=== PATIENT | male | born 1980 | race Caucasian/White ===

== ENCOUNTER 2018-11-18 08:30 | Observation (INO) | payer SELFPAY ==
[2018-11-18] MEDS ORDERED: Morphine 4 MG/ML VIAL ONE ×3 (09:04→12:03)
[2018-11-18] MEDS ORDERED: Pantoprazole 40 MG VIAL ONE (09:05)
[2018-11-18] MEDS ORDERED: Ondansetron PF 4 MG/2 ML Vial ONE ×2 (09:05→09:50)
[2018-11-18 09:11] LABS: #Eosinphils 0.1 thou/uL (0.0-0.7); #Lymphocytes 0.9 thou/uL (1.20-3.40); #Monocytes 0.6 thou/uL (0.11-0.59); #Neutrophils 15.3 thou/uL (1.40-6.50); %Basophils 0.2 % (0.0-1.0); %Eosinophils 0.3 % (0.0-10.0); %Lymphocytes 5.5 % (21.0-51.0); %Monocytes 3.3 % (0.0-10.0); %Neutrophils 90.8 % (42.0-75.0); Hemoglobin 15.7 g/dL (14.0-18.0); Mean Corpuscular HGB CONC 33.6 g/dL (32.0-36.0); Mean Corpuscular Hemoglobin 29.6 pg (27.0-31.0); Mean Platelet Volume 7.8 fL (7.4-10.4); Platelet Count 291 thou/uL (130-400); RBC Distribution Width 12.2 % (11.5-14.5); Red Blood Cell (RBC) Count 5.31 mill/uL (4.70-6.10); White Blood Cell (WBC) Count 16.9 thou/uL (4.8-10.8)
[2018-11-18 09:36] LABS: ALT (SGPT) 49 U/L (8-55); AST (SGOT) 36 U/L (5-34); Albumin 4.4 g/dL (3.5-5.0); Alkaline Phosphatase 87 U/L (40-150); Anion Gap 16 mmol/L (10-20); BUN (Urea Nitrogen) 16 mg/dL (8.9-20.6); Bilirubin, Total 0.7 mg/dL (0.2-1.2); Calc. Creatinine Clearance 0 mL/min (70-130); Calcium 9.7 mg/dL (7.8-10.44); Carbon Dioxide 25 mmol/L (22-29); Chloride 95 mmol/L (98-107); Estimated GFR-MDRD 90; Globulin 2.9 g/dL (2.4-3.5); Glucose 238 mg/dL (70-105); Lipase 6 U/L (8-78); Potassium 4.6 mmol/L (3.5-5.1); Protein, Total 7.3 g/dL (6.0-8.3); Sodium 131 mmol/L (136-145)
[2018-11-18] MEDS ORDERED: Dexamethasone 20 MG/5 ML VIAL ONE (09:50)
[2018-11-18] MEDS ORDERED: PROPOFOL 200 MG/20 ML VIAL ONE (09:50)
[2018-11-18] MEDS ORDERED: Rocuronium Bromide 10 MG/ML (10ML VIAL) ONE (09:50)
--- NOTE | 2018-11-18 09:57 | CT ---
CT ABDOMEN AND PELVIS WITH IV CONTRAST 11/18/2018 CLINICAL INFORMATION: Sudden onset of pain in the epigastric region with pain radiating to back. Nausea vomiting and diarrh ea. COMPARISON: None. Technique: Multiple contiguous axial CT images are obtained through the abdomen and pelvis with IV contrast. Cor onal reformatted images are provided. FINDINGS: Lower Chest: Minimal dependent bibasilar atelectasis is present Vessels: The abdominal aorta is normal in caliber without evidence of an aortic dissection. Abdomen: Portal vein:Patent Gallbladder: Within normal limits for CT imaging. Liver: within normal limits. Spleen: within normal limits. Pancreas: within normal limits. Adrenals: within normal limits. Kidneys: A subcentimeter too small to characterize hypodense lesion is seen in the midportion left ki dney. The kidneys otherwise have a normal CT appearance bilaterally. There is no hydronephrosis. Bowel: Normal caliber. Appendix: The appendix is dilated measuring up to 12 mm in diameter. There is an appendicolith seen a t the origin of the appendix measuring 7 mm in diameter. A smaller appendicolith is seen in the distal appendix. There is suggestion of minimal adjacent periappendiceal inflammatory changes. Findin gs are likely attributable to early acute appendicitis. No free intraperitoneal gas or adjacent fluid collection is identified. Peritoneum: No ascites or free air; no fluid collection. Mesentery and Retroperitoneum: No enlarged mesenteric or retroperitoneal lymph nodes. Abdominal Wall: within normal limits. Pelvis: Reproductive Organs: No pelvic masses. Pelvis within normal limits. Bladder: within normal limits. Bones: Mild degenerative changes are seen in the lower thoracic spine. IMPRESSION: Evidence of early acute appendicitis with the appendix measuring 12 mm in diameter. Above findings were discussed with ANN Harrison in the emergency department on 11/18/2018 at 09 52 hours.
[2018-11-18] MEDS ORDERED: Piperacillin/Tazobactam 4.5 GM VIAL ONE (09:59)
--- NOTE | 2018-11-18 10:08 | RAD ---
RADIOGRAPH CHEST 1 VIEW: DATE: 11/18/2018 HISTORY: 37-year-old male for preoperative clearance FINDINGS: There is no airspace density, pulmonary edema, or pneumothorax. The lateral costophrenic angles are n ot effaced. IMPRESSION: No acute pulmonary findings.
[2018-11-18 10:15] LABS: PTT 28.6 SEC (22.9-36.1); Prothrombin Time 12.9 SEC (12.0-14.7)
[2018-11-18 10:44] LABS: Bilirubin Negative (Negative); Blood, Urine Negative (Negative); Glucose, Urine (Dipstick) 500 mg/dL (Negative); Leukocyte Negative (Negative); Nitrite Negative (Negative); Protein, Urine (Dipstick) 30 mg/dL (Neg-Trace); Urobilinogen 0.2 mg/dL (0.2-1.0)
[2018-11-18 10:45] LABS: Clarity Clear (Clear)
[2018-11-18] MEDS ORDERED: ISOVUE-370 76%-LOCM 1 ML ONE (10:48)
[2018-11-18 10:54] LABS: Bacteria/HPF None Seen HPF (None Seen); Hyaline Casts/LPF NONE SEEN LPF (0-3 Hyaline); RBC/HPF 0-3 HPF (0-3); Squamous Epithelial 0-3 HPF (0-3); WBC/HPF None Seen HPF (0-3)
[2018-11-18] MEDS ORDERED: Ondansetron PF 4 MG/2 ML Vial IVP PRN (13:06)
[2018-11-18] MEDS ORDERED: Ondansetron ODT 4 MG TAB PO PRN (13:06)
[2018-11-18] MEDS ORDERED: Morphine 4 MG/ML VIAL SLOW IVP PRN (13:06)
[2018-11-18] MEDS ORDERED: D5 1/2 NS w/20 mEq KCL 1,000 ML IV SCH (13:15)
[2018-11-18] MEDS ORDERED: HumaLOG 300 UNITS/3 ML VIAL SC PRN (13:23)
[2018-11-18] MEDS ORDERED: Dextrose 5% in Water 1,000 ML IV PRN (13:23)
[2018-11-18] MEDS ORDERED: Dextrose 50% Abboject 50 ML SYRINGE SLOW IVP PRN (13:23)
[2018-11-18] MEDS ORDERED: hydrALAZINE 20 MG/ML VIAL SLOW IVP PRN (13:24)
[2018-11-18] MEDS ORDERED: Acetaminophen 1,000 MG in Premix Bag 1 BAG IVPB SCH (13:30)
[2018-11-18] MEDS ORDERED: Sodium Chloride 0.9% 1,000 ML IV SCH (13:30)
[2018-11-18] MEDS ORDERED: Ketorolac Tromethamine 30 MG/ML VIAL IVP SCH (13:30)
--- NOTE | 2018-11-18 13:46 | HP ---
HISTORY OF PRESENT ILLNESS: Jean Carlos Odell is a 37-year-old male patient, cellphone tower constructor, type 1 diabetic since he was 5 years age, presents with lower abdominal pain since 3 o'clock this morning, presents to the emergency room, noted to have an elevated white blood cell count to 16,000, normal hemoglobin, undergoing CAT scan, confirms suspicion of appendicitis. This was confirmed. I have talked to Kitty, nurse practitioner, in the emergency room. Plan is for laparoscopic appendectomy as outpatient. Specific recommendations were that the patient not be admitted to the floor and that he would be outpatient. To my surprise, he was admitted to the floor. He has had 1 L of IV fluids and then saline locked. He received intravenous antibiotics in the emergency room. ALLERGIES: NONE. SOCIAL HISTORY: Tobacco, none. Alcohol, rarely. MEDICATIONS: Insulin regular and NPH twice a day for each. PAST SURGICAL HISTORY: Noncontributory. REVIEW OF SYSTEMS: Ten-point noncontributory. PHYSICAL EXAMINATION: VITAL SIGNS: Weight is 104 kg. Blood pressure 191/91, pulse 69, respiratory rate 14, and temperature 97.8 degrees. HEAD, EARS, EYES, NOSE, AND THROAT: Unremarkable. LUNGS: Clear to auscultation. CARDIAC: Regular rate and rhythm without murmur or gallop. ABDOMEN: Soft. Tenderness in his right lower quadrant, with guarding, rebound. EXTREMITIES: Unremarkable. ASSESSMENT AND PLAN: 1. Acute appendicitis. Recommend laparoscopic video appendectomy as outpatient. Risks of infection, bleeding, visceral injury discussed. Questions answered. 2. Type 1 diabetes. Accu-Cheks and aggressive sliding scale. Job ID: [id number]
[2018-11-18 14:12] VITALS: BMI 32.1
[2018-11-18] MEDS ORDERED: Ketorolac Tromethamine 60 MG/2 ML VIAL IVP PRN (15:10)
[2018-11-18] MEDS ORDERED: Ketorolac Tromethamine 60 MG/2 ML VIAL IVP SCH ×2 (15:15)
[2018-11-18] MEDS: Piperacillin/Tazobactam 4.5 GM in Sodium Chloride 0.9% 100 ML IVPB SCH ×2 (15:20→23:49)
[2018-11-18] MEDS ORDERED: HumaLOG 300 UNITS/3 ML VIAL SC SCH (17:30)
[2018-11-18] MEDS ORDERED: Piperacillin/Tazobactam 4.5 GM in Sodium Chloride 0.9% 100 ML IVPB SCH (18:00)
[2018-11-18] MEDS ORDERED: Midazolam HCl 2 mg/2 ml Vial ONE ×2 (19:15→22:17)
[2018-11-18] MEDS ORDERED: Acetaminophen 1,000 MG in Premix Bag 1 BAG IVPB PRN (20:00)
[2018-11-18] MEDS ORDERED: Ketorolac Tromethamine 30 MG/ML VIAL IVP PRN (20:00)
[2018-11-18] MEDS ORDERED: Bupivacaine HCl 0.5%/Epinephrine 1:200,000/PF 30 ml Vial ONE (21:40)
[2018-11-18] MEDS ORDERED: Propofol 1,000 MG/100 ML VIAL IV ONE (22:02)
[2018-11-18] MEDS ORDERED: SUGAMMADEX SODIUM 500 MG/5 ML VIAL ONE (22:02)
[2018-11-18] MEDS ORDERED: Fentanyl 100 MCG/2 ML VIAL ONE (22:02)
[2018-11-18] MEDS ORDERED: Rocuronium Bromide 50 MG/5 ML VIAL ONE (22:02)
[2018-11-18] MEDS ORDERED: Lidocaine 2% Jelly 5 ML TUBE ONE (22:02)
[2018-11-18] MEDS ORDERED: traMADol HCl 50 MG TAB PO PRN ×2 (22:20)
[2018-11-18] MEDS ORDERED: Ibuprofen 600 MG TAB PO PRN (22:20)
[2018-11-18] MEDS ORDERED: Acetaminophen 500 MG TAB PO PRN (22:20)
[2018-11-18 23:40] VITALS: TEMP 99.1
[2018-11-19 00:33] VITALS: BP 128/73
--- NOTE | 2018-11-19 04:07 | OP ---
DATE OF PROCEDURE: 11/18/2018 PREOPERATIVE DIAGNOSES: Acute appendicitis. Diabetes, type 1. POSTOPERATIVE DIAGNOSES: Acute appendicitis. Diabetes, type 1. PROCEDURE PERFORMED: Laparoscopic video appendectomy. ANESTHESIA: General, local 0.5% Marcaine with epinephrine 30 mL. DESCRIPTION OF PROCEDURE: The patient was taken to the operating room, where under general anesthesia, Varela catheter was placed at the beginning of procedure, removed at the end. Abdomen was clipped of hair, prepared with ChloraPrep, and draped in routine fashion. Local anesthetic was infiltrated in the skin and subcutaneous tissue at each port site. Infraumbilical incision was made. Pneumoperitoneum to 15 mmHg was obtained with a Veress needle, replaced with a 5 port and laparoscope was inserted. Suprapubic incision was made, and a 12 port was placed. Right lateral subcostal incision was made, and a 5 port was placed. Mesoappendix was taken down with the LigaSure. Stump of the appendix was divided with Endo-CALOS blue load stapler and stapled cecal stump. Hemostasis was gained with clips. Good hemostasis was noted. Irrigant and pneumoperitoneum were evacuated. All instruments were removed, and all skin incisions were approximated with a subdermal 4-0 Monocryl and after suprapubic fascia was approximated with 0 Vicryl on UR needle, Dermabond was applied. The patient tolerated the procedure well. Job ID: [id number]
--- NOTE | 2018-11-19 05:07 | DIS ---
DATE OF ADMISSION: 11/18/2018 DATE OF DISCHARGE: 11/19/2018 DIAGNOSES: 1. Acute severe appendicitis. 2. Type 1 diabetes. MEDICATIONS: Insulin at home, NPH and regular, both twice a day. DISCHARGE MEDICATIONS: Ultram 50, #20, one refill 1 to 2 p.o. q.i.d. p.r.n. pain, refractory to ibuprofen [id number] 400 to 600 mg q.i.d. as needed and Tylenol 1000 mg p.o. q.i.d. as needed for pain. DIET AND ACTIVITY: As tolerated. Resume diabetic diet as tolerated. Follow up in my office in 2 to 3 weeks. HISTORY: A 37-year-old male presents with acute onset of pain. History consistent with appendicitis. Exam suggestive of and CAT scan confirms appendicitis. Patient received intravenous fluids, antibiotics and transferred to the floor because of unavailability of the operating room, and eventually underwent laparoscopic video appendectomy at 10:45 p.m. Postoperatively, he did well and was discharged home. Diet and activity as tolerated. No lifting restrictions. Follow up with Dr. Gomez in 2 to 3 weeks. Job ID: [id number]
--- NOTE | 2018-11-19 12:56 | EKG ---
Test Reason : Blood Pressure : / mmHG Vent. Rate : 069 BPM Atrial Rate : 069 BPM P-R Int : 152 ms QRS Dur : 096 ms QT Int : 438 ms P-R-T Axes : 046 041 065 degrees QTc Int : 469 ms Normal sinus rhythm Normal ECG Confirmed by JOCELYN PEÑA, NANCY ([id number]), editor in chief newspaper RICK TIPTON ([id number]) on 11/19/2018 12:56:14 PM Referred By: Confirmed By:NANCY BANKS MD
== END 2018-11-19 00:49 | disposition home or self-care (01) ==
LOC: ERS 08:30 → SURG A 10:00
PROVIDERS: ADMIT Specialist; ATTEND Specialist
PROC: 0DTJ4ZZ Resection of Appendix, Percutaneous Endoscopic Approach (ICD-10-PCS; principal; 2018-11-19)
DX: K35.33 Acute appendicitis with perforation, localized peritonitis, and gangrene, with abscess (principal); E10.9 Type 1 diabetes mellitus without complications
CPT/HCPCS: 36415; 36416; 71045; 74177; 80053; 81003; 81015; 82010; 83605; 83690; 85025; 85610; 85730; 87086; 88304; 93005; 96361; 96365; 96366; 96375; 96376; C9113; G0378; J0131; J0670; J1100; J1885; J2250; J2270; J2405; J2543; J2704; J3010; J3490; Q9966

== ENCOUNTER 2018-11-19 14:19 | Inpatient (IN) | payer SELFPAY ==
[~2018-11-19 14:19] MED LIST: ISOVUE-370 76%-LOCM 1 ML ONE
--- NOTE | 2018-11-19 14:45 | RAD ---
EXAM: CHEST ONE VIEW HISTORY: Chest pain COMPARISON: 11/18/2018. FINDINGS: Cardiac silhouette is magnified by projection but stable in size compared to prior exam. The cardiac silhouette does appear mildly enlarged, but this is likely attributable to an epicardial fat pad at the right lung base. Pulmonary vasculature is within normal limits. The lungs are clear. The osseous structures are intact. IMPRESSION: No acute cardiopulmonary process.
[2018-11-19 14:46] LABS: #Lymphocytes 1.6 thou/uL (1.20-3.40); #Monocytes 1.5 thou/uL (0.11-0.59); #Neutrophils 16.8 thou/uL (1.40-6.50); %Basophils 0.2 % (0.0-1.0); %Eosinophils 0.2 % (0.0-10.0); %Lymphocytes 8.1 % (21.0-51.0); %Monocytes 7.3 % (0.0-10.0); %Neutrophils 84.2 % (42.0-75.0); Hemoglobin 10.5 g/dL (14.0-18.0); Mean Corpuscular HGB CONC 34.4 g/dL (32.0-36.0); Mean Corpuscular Hemoglobin 30.8 pg (27.0-31.0); Mean Corpuscular Volume 89.3 fL (78.0-98.0); Mean Platelet Volume 7.9 fL (7.4-10.4); Platelet Count 380 thou/uL (130-400); RBC Distribution Width 11.9 % (11.5-14.5); White Blood Cell (WBC) Count 19.9 thou/uL (4.8-10.8)
[2018-11-19] MEDS ORDERED: Morphine 4 MG/ML VIAL ONE (15:09)
[2018-11-19 15:12] LABS: ALT (SGPT) 28 U/L (8-55); AST (SGOT) 11 U/L (5-34); Albumin 3.6 g/dL (3.5-5.0); Alkaline Phosphatase 70 U/L (40-150); Anion Gap 14 mmol/L (10-20); BUN (Urea Nitrogen) 27 mg/dL (8.9-20.6); CK (CPK) 98 U/L (30-200); Calc. Creatinine Clearance 0 mL/min (70-130); Calcium 8.5 mg/dL (7.8-10.44); Carbon Dioxide 25 mmol/L (22-29); Chloride 94 mmol/L (98-107); Estimated GFR-MDRD 49; Globulin 2.3 g/dL (2.4-3.5); Glucose 445 mg/dL (70-105); Potassium 4.5 mmol/L (3.5-5.1); Protein, Total 5.9 g/dL (6.0-8.3); Sodium 128 mmol/L (136-145)
[2018-11-19] MEDS ORDERED: HYDROcodone/Acetaminophen 5/325 mg Tablet ONE (15:52)
--- NOTE | 2018-11-19 15:53 | CT ---
CT PULMONARY ANGIOGRAM WITH IV CONTRAST AND 3-D POSTPROCESSING: HISTORY:Chest pain, difficulty breathing. Had an appendectomy last night FINDINGS: There is good contrast opacification of the pulmonary arterial vasculature without filling defects to suggest pulmonary embolism. The thoracic aorta is well opacified without aneurysm or dissection. No pleural or pericardial effusions are seen. No pneumothoraces, focal areas of consolidation or lung nodules are noted. There are degenerative changes in the spine. Upper abdominal tomograms demonstrate ascites. IMPRESSION: No CT evidence of pulmonary embolism.
--- NOTE | 2018-11-19 16:16 | CT ---
ABDOMEN CT WITH CONTRAST PELVIC CT WITH CONTRAST 11/19/18 HISTORY: Recent appendectomy. Patient is having pain. FINDINGS: ABDOMEN CT: Dependent atelectatic changes. The liver, spleen, pancreas, and adrenal glands have appropriate enhan cement and attenuation. No gastrohepatic, retrocrural or periportal lymphadenopathy. Symmetric enhancement of the kidneys. No obstructive uropathy. Limited evaluation of the alimentary canal due to lack of oral contrast. Multiple fluid filled small bowel loops are noted. The small bowel loops in the left hemiabdomen are slightly prominent, measuri ng 2.5 cm. Partial obstructive process versus ileus are differential considerations. The ileocecal ju nction appears to be unremarkable. There is surgical changes at the cecal apex, compatible with appen dicitis. Decompressed colon is noted. Occasional diverticulum. There are small foci of air in the mesentery compatible with postsurgical change. No mass or lymphade nopathy. There is complex fluid in the abdomen with attenuation coefficient between 35 and 37 Hounsfi eld units. There is also abnormal attenuation in the right lower quadrant which may represent postope rative hematoma or phlegmonous change. A well-formed abscess/infected fluid collection is not appreci ated at this time. There is a reactive upper normal lymph node in the right lower quadrant measuring 1 cm in maximum dimension. CT PELVIS: No mass, lymphadenopathy or free air. Trace amount of free fluid in the pelvis. Unremarkable urinary bladder. No lytic or blastic lesions in the osseous structures. IMPRESSION: 1. Slightly prominent small bowel loops in the left hemiabdomen which may represent a postoperat karely ileus versus early/partial obstructive process. 2. Complex intra-abdominal free fluid which is presumed to be postoperative. There is also mixed attenuation in the right lower quadrant mesentery which may represent postoperative hematoma versus phlegmonous change. A well-formed abscess is not appreciated at this time. Continued surveillance is recommended. POS: [facility]
[2018-11-19] MEDS ORDERED: Insulin Regular 300 UNITS/3 ML VIAL ONE (16:26)
[2018-11-19] MEDS ORDERED: Insulin Regular 300 UNITS/3 ML VIAL SC SCH (16:30)
[2018-11-19] MEDS ORDERED: HYDROcodone/Acetaminophen 7.5/325 mg Tablet PO PRN (17:20)
[2018-11-19] MEDS ORDERED: D5 1/2 NS w/20 mEq KCL 1,000 ML IV SCH (17:30)
[2018-11-19] MEDS: Piperacillin/Tazobactam 3.375 GM in Sodium Chloride 0.9% 100 ML IVPB SCH (17:46)
[2018-11-19] MEDS ORDERED: Dextrose 5% in Water 1,000 ML IV PRN (19:23)
[2018-11-19] MEDS ORDERED: Dextrose 50% Abboject 50 ML SYRINGE SLOW IVP PRN (19:23)
[2018-11-19] MEDS ORDERED: NPH, Human Insulin Isophane 300 UNIT/3 ML VIAL SC SCH (19:30)
--- NOTE | 2018-11-19 20:26 | CON ---
DATE OF CONSULTATION: 11/19/2018 REQUESTING PHYSICIAN: Emerson Parks MD PURPOSE: Diabetes management. HISTORY OF PRESENT ILLNESS: This is a 37-year-old male with known type 1 diabetes, who is status post appendectomy last night. The patient was discharged to home, states that since discharge, he has had episodes of nausea, increasing abdominal pain, and sensation of "curtain over my eyes", that started around 4 a.m., this morning when he was getting out of bed. He states he has had other episodes since then, where the room is spinning and he feels nauseous as well as cold sweats. He has had Tylenol to help manage the pain, around noon today had some tramadol , and states that the symptoms were persisting. He also noted shallow breathing. He denies any vomiting and reports able to drink water normally. In addition, his blood sugars have been reading high despite taking 30 units of NPH, 10 units of regular insulin, both at 8 a.m., this morning; 16 units of Humalog at noon today. In the emergency room, he was still found to have his blood sugar over 400. In the emergency room, the patient's symptoms were concerning for presyncope, uncontrolled blood sugars, acute kidney injury and acute decline in the patient' s hemoglobin post-operatively. For this, General Surgery was called, and hospitalist was called for consult. In the emergency room, the patient received Novolin 10 units, 2 L of normal saline, and 8 mg of morphine. PAST MEDICAL HISTORY: Type 1 diabetes since age 5. ALLERGIES: NONE. MEDICATIONS: Confirmed with the patient. 1. Insulin 30 units at 8 a.m., and 20 units at 6 p.m. 2. Regular insulin 10 units at 6:15 a.m., and 10 units at 5 p.m. PAST SURGICAL HISTORY: Status post appendectomy. FAMILY HISTORY: Negative. SOCIAL HISTORY: The patient is . His is his surrogate decision maker. He is a full code and denies tobacco. REVIEW OF SYSTEMS: Positive for dysuria, which has since resolved; sore shoulders and chest pain; nausea as noted above; dry mouth. Negative for any vomiting. All remaining review of systems are reviewed and negative. PHYSICAL EXAMINATION: VITAL SIGNS: Blood pressure 139/74, temperature 97.8, pulse 99, respirations 18 , saturations 99% on room air. GENERAL: Awake, alert, and responsive, in no apparent distress. Able to speak in full sentences. NECK: supple, non-tender LYMPHATICS: No anterior cervical lymphadenopathy LUNGS: Clear to auscultation bilaterally. HEART: Normal S1 and S2. Regular rate and rhythm. No significant murmur. ABDOMEN: Soft with present bowel sounds. Surgical incisions are clean, dry, and intact. EXTREMITIES: No clubbing, cyanosis, or edema. NEUROLOGIC: No focal deficits. PSYCHIATRIC: He is euthymic, alert and oriented x4. SKIN: No visible rashes. VASCULAR: 2+ dorsalis pedis pulses. LABORATORY DATA: CBC: WBC 19.9, hemoglobin 10.5, hematocrit 30.4, platelet 380 with 84% neutrophils. Basic metabolic panel: Sodium 128, which corrects to 136; potassium 4.5, chloride 94, bicarbonate 25, BUN 27, creatinine 1.6, glucose 445. LFTs only notable for a total protein of 5.9. Troponin 0.01. CT angiogram is negative for PE. Chest x-ray personally reviewed is negative. CT abdomen and pelvis with contrast shows slightly prominent small bowel loops in the left nubia-abdomen, which may represent postoperative ileus or early partial obstructive process; complex intra-abdominal free fluid, which is presumed to be postoperative. IMPRESSION: 1. Acute kidney injury in a patient status post surgery and now status post contrast IV study. 2. Diabetes mellitus, type 1, uncontrolled, likely secondary to stress of surgery and elevated cortisol levels. No evidence of DKA 3. Postoperative nausea and vertigo. 4. Leukocytosis. 5. Postoperative anemia. PLAN: 1. Admission by Dr. Parks. 2. We will change fluids from D5 half-normal to normal saline and continue IV fluid hydration. 3. We will continue the NPH going slightly higher tonight at 25 units and continue with 30 units in the morning. We will use insulin sliding scale with Humalog every 4 hours to improve blood sugar control. 4. Monitor renal function. Recheck in the morning. 5. Monitor the anemia. Recheck in the morning, and we will type and screen. 6. Postoperative pain and antibiotics per Dr. Parks. 7. Monitor urine output. If renal function does not improve, may need a renal ultrasound and/or a Nephrology consultation. 8. DVT prophylaxis with pneumatic compression devices. 9. GI prophylaxis. The patient has been written for IV famotidine. 10. Code status is full. Surrogate decision maker is the patient's . 11. Reviewed the plan of care from the hospitalist perspective. No questions or further needs at end of evaluation. Both demonstrate understanding and agree. Job ID: [id number] MTDD
[2018-11-19] MEDS: Sodium Chloride 0.9% 1,000 ML IV SCH (21:15)
[2018-11-19] MEDS: Famotidine/PF 20 mg/2ml Vial SLOW IVP SCH (21:23)
[2018-11-19] MEDS: HYDROcodone/Acetaminophen 7.5/325 mg Tablet PO PRN (21:24)
[2018-11-20] MEDS: Piperacillin/Tazobactam 3.375 GM in Sodium Chloride 0.9% 100 ML IVPB SCH ×4 (01:25→17:33)
--- NOTE | 2018-11-20 02:21 | HP ---
CHIEF COMPLAINT: Abdominal pain and presyncope. HISTORY OF PRESENT ILLNESS: Mr. Odell is a 37-year-old type 1 diabetic who underwent laparoscopic appendectomy by Dr. Gomez last night. He returned home, was having a lot of abdominal pain and had 2 episodes where he became very dizzy and lightheaded. He came back to the emergency room for evaluation. His abdominal pain was felt to be consistent with his postoperative status, but he was noted to have a drop in his hemoglobin from preoperatively, so CT was obtained, which showed a complex fluid in his abdomen as well as some phlegmonous changes in the right lower quadrant, but no abscess and no definite large hematoma. The patient states that his blood sugars have been elevated and do not seem to be responding to insulin like they should. He has not had any other presyncopal episodes since coming to the ER. The pain is in his abdomen, but also up into his shoulders and it makes hard for him to take deep breath. He was pulling 2000 mL on incentive spirometry when he left the hospital, but now can only get it up to 1000. He has not had any fevers or chills, but he is somewhat short of breath. In the emergency room, a CT of the chest was performed due to concern for pulmonary embolism and this was negative. PAST MEDICAL HISTORY: Type 1 diabetes since 5 years of age. PAST SURGICAL HISTORY: Appendectomy yesterday. ALLERGIES: HE HAS NO KNOWN DRUG ALLERGIES. OUTPATIENT MEDICATIONS: Include insulin. PHYSICAL EXAMINATION: VITAL SIGNS: Vital signs in the emergency room showed some mild tachycardia, but normal blood pressure, temperature and O2 saturations. GENERAL: Reveals a healthy-appearing young man, in no acute distress. HEENT: Unremarkable. HEART: Regular in its rate and rhythm after receiving fluids. LUNGS: He is clear to auscultation bilaterally. ABDOMEN: His abdomen is soft and nondistended. His surgical incisions look good. He has appropriate postoperative tenderness. He does not exhibit rigidity, rebound or guarding. EXTREMITIES: Warm and well perfused without edema. NEURO: No focal deficits. PSYCHIATRIC: Alert, oriented and appropriate. LABORATORY DATA: White count is still elevated at 19, hematocrit has gone down somewhat to 30.4. Sodium is a little low at 128 and glucose is markedly high at 445. BUN and creatinine are up a little bit to 27 and 1.6. ASSESSMENT: Mild anemia and dehydration, likely due to intraoperative losses, I doubt that the patient has significant ongoing bleeding and he has responded well to IV fluids. We will monitor him and recheck his labs in the morning. I have reviewed his CT images and I agree with the written report. I suspect the most of fluid in the abdomen is irrigation, although there is likely some blood in it. Medicine has been consulted to manage his diabetes and due to his relatively immunosuppressed status and presence of phlegmonous changes in the right lower quadrant likely related to his recent appendicitis. I have decided to put him back on IV antibiotics while he is an inpatient. If he is stable, I expect he will be able to be discharged home tomorrow. If he has any further episodes of dizziness, he is to contact the nurse to do vital signs and they are to call me with these. Job ID: [id number]
[2018-11-20] MEDS: HumaLOG 300 UNITS/3 ML VIAL SC PRN ×2 (02:32→05:17)
[2018-11-20 06:03] LABS: #Eosinphils 0.1 thou/uL (0.0-0.7); #Lymphocytes 1.9 thou/uL (1.20-3.40); #Monocytes 1.1 thou/uL (0.11-0.59); #Neutrophils 7.1 thou/uL (1.40-6.50); %Basophils 0.1 % (0.0-1.0); %Eosinophils 1.4 % (0.0-10.0); %Lymphocytes 18.7 % (21.0-51.0); %Monocytes 10.3 % (0.0-10.0); %Neutrophils 69.4 % (42.0-75.0); Hemoglobin 7.9 g/dL (14.0-18.0); Mean Corpuscular HGB CONC 34.4 g/dL (32.0-36.0); Mean Corpuscular Volume 89.9 fL (78.0-98.0); Mean Platelet Volume 7.8 fL (7.4-10.4); Platelet Count 280 thou/uL (130-400); RBC Distribution Width 11.9 % (11.5-14.5); Red Blood Cell (RBC) Count 2.55 mill/uL (4.70-6.10); White Blood Cell (WBC) Count 10.3 thou/uL (4.8-10.8)
[2018-11-20] MEDS: HYDROcodone/Acetaminophen 7.5/325 mg Tablet PO PRN ×3 (08:17→17:30)
[2018-11-20] MEDS: Sodium Chloride 0.9% 1,000 ML IV SCH ×2 (08:19→11:34)
[2018-11-20] MEDS: Famotidine/PF 20 mg/2ml Vial SLOW IVP SCH ×2 (08:20→21:25)
[2018-11-20 08:45] LABS: Anion Gap 9 mmol/L (10-20); BUN (Urea Nitrogen) 17 mg/dL (8.9-20.6); Calc. Creatinine Clearance 172 mL/min (70-130); Calcium 8.2 mg/dL (7.8-10.44); Carbon Dioxide 29 mmol/L (22-29); Chloride 100 mmol/L (98-107); Estimated GFR-MDRD Greater than 90; Glucose 123 mg/dL (70-105); Potassium 3.5 mmol/L (3.5-5.1); Sodium 134 mmol/L (136-145)
[2018-11-20] MEDS ORDERED: NPH, Human Insulin Isophane 300 UNIT/3 ML VIAL SC SCH (09:00)
[2018-11-20] MEDS ORDERED: HumaLOG 300 UNITS/3 ML VIAL SC PRN ×2 (09:32)
--- NOTE | 2018-11-20 09:37 | PDOC.PN ---
- Subjective Encounter Start Date: 11/20/18 (f/u CARLEEN ) Encounter Start Time: 09:35 Subjective: Pt overall feeling better, passing flatus, denies any concerns this morning - Objective Resuscitation Status - Order Detail: 11/19/18 19:35 Resuscitation Status Routine Resuscitation Status: FULL: Full Resuscitation Vital Signs & Weight: Vital Signs (12 hours) Temp Pulse Resp BP BP Pulse Ox 11/20/18 07:19 97.9 F 93 16 152/79 H 96 11/20/18 04:14 98.2 F 96 14 129/48 L 95 11/19/18 23:36 98.6 F 97 14 137/74 95 Weight Weight 230 lb I&O: 11/19/18 11/20/18 11/21/18 06:59 06:59 06:59 Intake Total 1560 Balance 1560 Result Diagrams: 11/20/18 05:35 11/20/18 08:03 Additional Labs: Accuchecks 11/20/18 11/20/18 11/19/18 08:32 03:49 23:34 POC Glucose 134 H 246 H 265 H 11/19/18 19:05 POC Glucose 317 H Phys Exam - Physical Examination Constitutional: NAD Respiratory: no wheezing, no rales, no rhonchi, clear to auscultation bilateral Cardiovascular: RRR 2/6 DIOMEDES this morning Gastrointestinal: soft, positive bowel sounds Neurological: non-focal, moves all 4 limbs Psychiatric: normal affect Skin: no rash Dx/Plan (1) Diabetes mellitus Code(s): E11.9 - TYPE 2 DIABETES MELLITUS WITHOUT COMPLICATIONS Status: Chronic Qualifiers: Diabetes mellitus type: type 1 Diabetes mellitus complication status: without complication Qualified Code(s): E10.9 - Type 1 diabetes mellitus without complications (2) CARLEEN (acute kidney injury) Code(s): N17.9 - ACUTE KIDNEY FAILURE, UNSPECIFIED Status: Resolved (3) S/P appendectomy Code(s): Z90.49 - ACQUIRED ABSENCE OF OTHER SPECIFIED PARTS OF DIGESTIVE TRACT Status: Acute (4) Anemia Code(s): D64.9 - ANEMIA, UNSPECIFIED Status: Acute - Plan * s/p appendectomy - care per Gen Surgery * Anemia - at least partially dilutional from IVF related to CARLEEN - recheck ordered for 14:00 today * Blood sugars have normalized - elevated yesterday c/w stress response to surgery * Pt to administer his home NPH - states he would use 25 units this morning and will determine evening dose based on meal type ordered and blood sugar * change to humalog ISS ACHS * want to continue some IVF given the CARLEEN yesterday and contrast study - will lowre rate to 50 ml/hr * * dvt prophy - scd's and ambulatory * gi prophy - per Gen Surg * code status full * * reviewed plan of care from the hospitalist perspective - with regards to resovled CARLEEN and improved blood sugars. No questions or further needs at any time. Please call with questions or if the patient will be discharged today.
[2018-11-20 14:18] LABS: Hemoglobin 7.4 g/dL (14.0-18.0)
--- NOTE | 2018-11-20 20:11 | PRG ---
DATE OF SERVICE: 11/20/2018 SUBJECTIVE: The patient is currently on the surgical floor. He was admitted early this morning postop day #1, status post laparoscopic appendectomy. The patient had presyncopal type episode at home. He brought back to the emergency department, where a CT scan showed fluid collection in his abdomen, unable to specify postop fluid versus phlegmonous change or blood, so the patient was brought in the hospital, started on IV antibiotics. It was noted that he had a drop in his hemoglobin, so again he was being monitored for this. This morning, he has no complaints. He states that he feels much better than he did last night. He denies any dizziness or similar symptoms. He was able to tolerate clears this morning. He states his pain is well controlled. Denies any fevers or chills. OBJECTIVE: VITAL SIGNS: Temperature is 97.9, heart rate 93, blood pressure 152/79, respirations 16, and oxygen saturation is 96% on room air. GENERAL: The patient is resting comfortably in bed. He is awake, alert, and oriented. HEENT: Unremarkable. LUNGS: Clear to auscultation with good inspiratory and expiratory effort. HEART: Regular rate and rhythm. ABDOMEN: Soft, flat, minimally tender, specifically in the right lower quadrant. He has good bowel sounds. Postop sites are clean, dry, and intact. EXTREMITIES: Neurovascularly intact x4. LABORATORY FINDINGS: White blood cell count 10.3, hemoglobin 7.9, hematocrit 22.9, platelets 280. Sodium 134, potassium 3.5, chloride 100, CO2 of 29, BUN 17, creatinine 0.86, and glucose 123. IMAGING STUDIES: There are no radiographs reviewed this morning. ASSESSMENT AND PLAN: 1. Status post laparoscopic appendectomy. 2. Near syncopal episode postoperatively. 3. Likely acute blood loss anemia. Plan will be to keep the patient overnight. We will allow him a diet today. Plan to exchange his IV antibiotics to p.o. antibiotics. Repeat labs in the morning and evaluate him again in the morning sooner as needed. The evaluation and examination were done with Dr. Pulido this morning during rounds. Job ID: [id number]
[2018-11-20 20:30] LABS: Hemoglobin 7.3 g/dL (14.0-18.0)
[2018-11-20] MEDS ORDERED: HUMULIN R 100 UNITS in Sodium Chloride 0.9% 100 ML IVPB SCH (20:45)
--- NOTE | 2018-11-20 20:48 | PDOC.EVN ---
Event Note - Event Note Event Note: Went to evaluate patient - and pt report easy dyspnea with exertion and heart rate 110's, and pt reports some lightheaded. States his abdomen is more distended. Denies any n/v. I checked pulse and 110's at rest - pt had been resting for an hour. Exam - heart tachycardic, Lungs ctab with good air movement, Abd - present bowel sounds Blood sugar 180's at lunch time, not checked at dinner time. He self- administed (with my request) 20 units of NPH around 19:30, and 6 units of humalog with dinner - although glucose level unknown. Current blood sugar 330' s. Hb 7.4 this afternoon - d/w Curtis Santana prior to evaluating the patient who changed pt to NPO after midnight in case return to the OR needed. Called Curtis back with change in status - now tachycardic at rest, blood sugars up to the 330's, and sx with ambulation. - he evaluated pt In the meantime - Hb rechecked and 7.3 - will crossmatch for 2 units prbc and hold on transfusion. Recheck at 01:00 and if 7.0 - requested that night doc order 1 unit of prbc Move to IMCU - no beds, therefore will move to the CCU for insulin gtt to manage blood sugars with goal of avoiding DKA. - d/c oral antibiotics - continue lower rate IVF as pt has received over 4 liters of fluid since admission secondary to elevated blood sugars and CARLEEN. Pt consents to blood - verbal and written consent obtained, questions answered reviewed plan of care with patient//Curtis/RN - no questions or further needs at end of eval
[2018-11-20] MEDS ORDERED: Amoxicillin/Potassium Clav 875 MG TAB PO SCH (21:00)
[2018-11-20] MEDS ORDERED: Ascorbic Acid 500 mg Chewable Tablet PO SCH (21:00)
[2018-11-20] MEDS: Ferrous Sulfate 325 MG TAB PO SCH (21:25)
[2018-11-21] MEDS: Piperacillin/Tazobactam 3.375 GM in Sodium Chloride 0.9% 100 ML IVPB SCH ×3 (00:38→12:05)
[2018-11-21 00:40] VITALS: BMI 30.8
[2018-11-21] MEDS: Morphine 4 MG/ML VIAL SLOW IVP PRN ×3 (00:46→08:51)
[2018-11-21] MEDS: Sodium Chloride 0.9% 1,000 ML IV SCH ×2 (00:55→04:44)
[2018-11-21 01:26] LABS: Hemoglobin 7.7 g/dL (14.0-18.0)
--- NOTE | 2018-11-21 01:30 | PDOC.EVN ---
Event Note - Event Note Event Note: H/H checked.7.7.Monitor.
[2018-11-21 01:46] LABS: Anion Gap 12 mmol/L (10-20); BUN (Urea Nitrogen) 10 mg/dL (8.9-20.6); Calc. Creatinine Clearance 170 mL/min (70-130); Calcium 8.5 mg/dL (7.8-10.44); Carbon Dioxide 28 mmol/L (22-29); Chloride 102 mmol/L (98-107); Estimated GFR-MDRD Greater than 90; Glucose 110 mg/dL (70-105); Potassium 3.5 mmol/L (3.5-5.1); Sodium 138 mmol/L (136-145)
[2018-11-21 05:41] LABS: Hemoglobin 7.5 g/dL (14.0-18.0)
[2018-11-21 06:02] LABS: Anion Gap 11 mmol/L (10-20); BUN (Urea Nitrogen) 9 mg/dL (8.9-20.6); Calc. Creatinine Clearance 170 mL/min (70-130); Calcium 8.7 mg/dL (7.8-10.44); Carbon Dioxide 28 mmol/L (22-29); Chloride 101 mmol/L (98-107); Estimated GFR-MDRD Greater than 90; Glucose 79 mg/dL (70-105); Potassium 3.4 mmol/L (3.5-5.1); Sodium 137 mmol/L (136-145)
--- NOTE | 2018-11-21 08:27 | PDOC.PN ---
- Subjective Encounter Start Date: 11/21/18 (f/u DM) Encounter Start Time: 08:25 Subjective: Pt moved to the ICU last night for close monitoring and insulin drip. C/o -: abd pain and increasing abd distention this morning. Oxygen level low last -: night and on oxygen, short of breath with small movements - Objective Resuscitation Status - Order Detail: 11/19/18 19:35 Resuscitation Status Routine Resuscitation Status: FULL: Full Resuscitation Vital Signs & Weight: Vital Signs (12 hours) Temp Pulse Ox 11/21/18 07:18 100 11/21/18 07:00 98.5 F 11/21/18 04:00 98.5 F 11/21/18 00:00 100.1 F H 11/20/18 21:30 97 11/20/18 21:00 99.4 F Weight Weight 238 lb 15.697 oz Most Recent Monitor Data Heart Rate from ECG 103 NIBP 157/72 NIBP BP-Mean 100 Respiration from ECG 19 SpO2 92 I&O: 11/20/18 11/21/18 11/22/18 06:59 06:59 06:59 Intake Total 1560 2440 Output Total 750 Balance 1560 1690 Result Diagrams: 11/21/18 05:11 11/21/18 05:11 Additional Labs: Accuchecks 11/21/18 11/21/18 11/21/18 07:23 04:33 03:12 POC Glucose 103 90 85 11/21/18 11/21/18 11/20/18 02:04 00:28 22:46 POC Glucose 90 161 H 271 H 11/20/18 11/20/18 11/20/18 21:07 19:57 11:22 POC Glucose 317 H 339 H 188 H 11/20/18 11/20/18 08:32 03:49 POC Glucose 134 H 246 H EKG Reviewed by me: Yes (tele - tachy 110's, pvc's) Phys Exam - Physical Examination Constitutional: NAD Respiratory: no wheezing, no rales, no rhonchi, clear to auscultation bilateral Cardiovascular: RRR 2/6 DIOMEDES Gastrointestinal: positive bowel sounds abd remains distended Musculoskeletal: no edema, pulses present Psychiatric: normal affect Skin: no rash Dx/Plan (1) Acute respiratory failure with hypoxia Code(s): J96.01 - ACUTE RESPIRATORY FAILURE WITH HYPOXIA Status: Acute (2) Diabetes mellitus Code(s): E11.9 - TYPE 2 DIABETES MELLITUS WITHOUT COMPLICATIONS Status: Chronic Qualifiers: Diabetes mellitus type: type 1 Diabetes mellitus complication status: without complication Qualified Code(s): E10.9 - Type 1 diabetes mellitus without complications (3) CARLEEN (acute kidney injury) Code(s): N17.9 - ACUTE KIDNEY FAILURE, UNSPECIFIED Status: Resolved (4) S/P appendectomy Code(s): Z90.49 - ACQUIRED ABSENCE OF OTHER SPECIFIED PARTS OF DIGESTIVE TRACT Status: Acute (5) Anemia Code(s): D64.9 - ANEMIA, UNSPECIFIED Status: Acute (6) Hypokalemia Code(s): E87.6 - HYPOKALEMIA Status: Acute - Plan * ARF with hypoxia - new * check CXR for volume overload (lung exam is clear) * continue oxygen supplementation * Critical care consult today * Symptomatic anemia - short of breath, tachycardia * D/w Dr. Pulido and I will order 1 unit of PRBC. No significant change in hemoglobin overnight, however is more symptomatic * CARLEEN on admission resolved * Hypokalemia secondary to insulin gtt - change IVF to NS with potassium at same rate * * DM now on insulin gtt - blood sugars are very well controlled - will continue the protocol for tight management * * Gen Surgery to evaluate the patient with regards to post-operative course, anemia, pain * Pt is on broad spectrum abx * dvt prophy - scd's due to anemia * gi prophy - pt is on IV famotidine * code status full * * pt remains at high risk in current condition. * reviewed plan of care with patient/, no questions or further needs at end of eval. Reviewed CXR and volume overload - Echo ordered - 20 mg lasix IV now and reassess this afternoon - lower IVF rate to 25 ml/hr to support the insulin gtt - continue managing blood sugars 100-150 called RN and discussed plan of care 15:15 - patient re-assessed - states he is feeling better. On room air, heart rate now in the 90's, has voided quite a bit with the IV lasix. Transfer orders placed by Surgery team for 3rd floor. Reviewed orders and given type 1 DM - will add in his NPH insulin - lower than his usual amount at home as he is on a clear liquid diet. Humalog mild SSI with meals and bedtime. Recheck renal function in AM. Echo result pending. Reviewed plan of care with patient , no questions or further needs at end of eval.
[2018-11-21] MEDS ORDERED: NS 0.9% w/ 40 MEQ KCL 1,000 ML IV SCH ×2 (08:30→09:33)
[2018-11-21] MEDS: Famotidine/PF 20 mg/2ml Vial SLOW IVP SCH ×2 (08:50→20:21)
--- NOTE | 2018-11-21 08:55 | RAD ---
Exam: Chest one view HISTORY:Dyspnea Comparison: 11/19/2018 FINDINGS: Cardiac silhouette:Enlarged Pulmonary vessels: Prominent Costophrenic angles: Clear LUNGS: Patchy interstitial opacities Pneumothorax: None Osseous abnormalities: None IMPRESSION: Correlate for congestive heart failure/volume overload.
--- NOTE | 2018-11-21 10:02 | CON ---
DATE OF CONSULTATION: HISTORY OF PRESENT ILLNESS: Jean Carlos Odell is a 37-year-old, obese, gentleman, who last night was transferred from the surgical floor to the ICU after he became hypotensive, syncopal episode, and had difficulty breathing. He said he is walking post laparoscopic appendicectomy. Surgery was done on , today is Thursday, 3 days ago. He came back to the hospital the next day with significant pain. No nausea or vomiting. CT abdomen did reveal some free fluid. This morning, he is still having ongoing pain. No bowel movements. He is denying any difficulty breathing. He is a nonsmoker. PAST MEDICAL HISTORY: Diabetes. PAST SURGICAL HISTORY: Previous surgeries: Appendectomy recently. ALLERGIES: NONE. MEDICATIONS: Home medicine includes insulin. SOCIAL HISTORY: REVIEW OF SYSTEMS: Otherwise, 10-point negative. PHYSICAL EXAMINATION: VITAL SIGNS: Saturations are 100% on 2 L, blood pressure 141/72, pulse is 90, respiratory rate 18. CHEST: No wheezing or crackles. CARDIAC: Normal S1 and S2. No gallops. ABDOMEN: No masses. LABORATORY DATA: His H and H have dropped substantially. Hematocrit is 21; 3 days ago, it was 46. Otherwise, his chemistry profile shows lytes are normal. IMPRESSION: 1. Status post laparoscopic appendectomy. 2. Postoperative pain. H and H. Rule out intra-abdominal hemorrhage. 3. Diabetes. 4. Obesity. PLAN: Surgery to reassess whether he needs to be re-explored this morning. He is on empiric antibiotics and supportive care. Pulmonary brothers, he appears to be stable. His pulmonary symptoms are probably secondary to his hypotension and abdominal pain. We will follow while in the ICU. Job ID: [id number]
[2018-11-21] MEDS ORDERED: Furosemide 20 MG/2 ML VIAL SLOW IVP SCH (10:30)
--- NOTE | 2018-11-21 10:45 | RAD ---
KUB: Date: 11/21/18 HISTORY: Increasing abdominal distention. COMPARISON: 11/19/18 CT examination. FINDINGS: There is air within some mildly distended proximal small bowel loops, with the possibility of some mi ld bowel wall edema also present. There is air present within the colon. The degree of small bowel di stention may be slightly increased as compared to that exam. IMPRESSION: Suggestion of perhaps some slight increased small bowel distention, and also some questionable wall t hickening of some of the small bowel loops. If clinically indicated, a follow-up repeat CT would be s uggested. POS: [facility]
[2018-11-21] MEDS: Ferrous Sulfate 325 MG TAB PO SCH ×2 (10:46→20:21)
[2018-11-21] MEDS ORDERED: HumaLOG 300 UNITS/3 ML VIAL SC PRN ×3 (14:29→15:11)
[2018-11-21] MEDS ORDERED: HumaLOG 300 UNITS/3 ML VIAL SC SCH (15:30)
[2018-11-21] MEDS ORDERED: Insulin Regular 300 UNITS/3 ML VIAL SC PRN (16:31)
[2018-11-21] MEDS: HumaLOG 300 UNITS/3 ML VIAL SC PRN (17:30)
[2018-11-21] MEDS ORDERED: NPH, Human Insulin Isophane 300 UNIT/3 ML VIAL SC SCH (18:00)
[2018-11-21] MEDS ORDERED: Acetaminophen 325 MG TAB PO PRN (20:07)
[2018-11-21] MEDS: Amoxicillin/Potassium Clav 875 MG TAB PO SCH (20:21)
[2018-11-22 05:29] LABS: #Eosinphils 0.2 thou/uL (0.0-0.7); #Lymphocytes 1.4 thou/uL (1.20-3.40); #Monocytes 0.9 thou/uL (0.11-0.59); #Neutrophils 4.2 thou/uL (1.40-6.50); %Basophils 0.2 % (0.0-1.0); %Eosinophils 2.6 % (0.0-10.0); %Neutrophils 63.1 % (42.0-75.0); Hemoglobin 9.1 g/dL (14.0-18.0); Mean Corpuscular HGB CONC 33.4 g/dL (32.0-36.0); Mean Corpuscular Hemoglobin 29.7 pg (27.0-31.0); Mean Corpuscular Volume 89.1 fL (78.0-98.0); Mean Platelet Volume 7.1 fL (7.4-10.4); Platelet Count 325 thou/uL (130-400); RBC Distribution Width 11.8 % (11.5-14.5); Red Blood Cell (RBC) Count 3.05 mill/uL (4.70-6.10); White Blood Cell (WBC) Count 6.6 thou/uL (4.8-10.8)
[2018-11-22 05:48] LABS: Anion Gap 13 mmol/L (10-20); BUN (Urea Nitrogen) 7 mg/dL (8.9-20.6); Calc. Creatinine Clearance 187 mL/min (70-130); Carbon Dioxide 28 mmol/L (22-29); Chloride 98 mmol/L (98-107); Estimated GFR-MDRD Greater than 90; Glucose 201 mg/dL (70-105); Sodium 135 mmol/L (136-145)
[2018-11-22] MEDS: HumaLOG 300 UNITS/3 ML VIAL SC PRN (06:06)
[2018-11-22] MEDS ORDERED: Clopidogrel Bisulfate 75 MG TAB ONE (06:29)
[2018-11-22] MEDS ORDERED: NPH, Human Insulin Isophane 300 UNIT/3 ML VIAL SC SCH ×2 (08:00→18:00)
--- NOTE | 2018-11-22 08:41 | RAD ---
CHEST 1 VIEW: Date: 11/22/18 COMPARISON: 11/21/18. HISTORY: Volume overload. FINDINGS: Portable semiupright chest radiograph demonstrates cardiomegaly, pulmonary vascular and interstitial prominence. No consolidation. No pleural effusion or pneumothorax. IMPRESSION: No significant interval change. Congestive heart failure. Volume overload. POS: OFF
[2018-11-22] MEDS ORDERED: Furosemide 20 MG/2 ML VIAL SLOW IVP SCH (09:00)
[2018-11-22] MEDS: Amoxicillin/Potassium Clav 875 MG TAB PO SCH (09:01)
[2018-11-22] MEDS: Ferrous Sulfate 325 MG TAB PO SCH (09:01)
[2018-11-22] MEDS: Famotidine/PF 20 mg/2ml Vial SLOW IVP SCH (09:08)
[2018-11-22] MEDS ORDERED: Insulin Regular 300 UNITS/3 ML VIAL SC PRN ×2 (09:53)
[2018-11-22] MEDS ORDERED: Furosemide 20 MG TAB PO SCH (10:00)
--- NOTE | 2018-11-22 10:09 | PDOC.PN ---
- Subjective Encounter Start Date: 11/22/18 (f/u Type 1 DM) Encounter Start Time: 10:04 Subjective: Pt is without complaints, he is feeling better, passing gas, ambulating and -: reports his breathing is improved. Denies any complaints - Objective Resuscitation Status - Order Detail: 11/19/18 19:35 Resuscitation Status Routine Resuscitation Status: FULL: Full Resuscitation Vital Signs & Weight: Vital Signs (12 hours) Temp Pulse Resp BP Pulse Ox 11/22/18 07:30 98.6 F 100 18 160/83 H 97 11/22/18 03:33 98.7 F 87 18 134/63 96 11/22/18 00:18 99.0 F 90 18 128/60 95 Weight Weight 238 lb 15.697 oz Most Recent Monitor Data Heart Rate from ECG 96 NIBP 143/73 NIBP BP-Mean 96 Respiration from ECG 21 SpO2 96 I&O: 11/21/18 11/22/18 11/23/18 06:59 06:59 06:59 Intake Total 2440 2030 Output Total 750 1810 Balance 1690 220 Result Diagrams: 11/22/18 05:20 11/22/18 05:20 Additional Labs: Accuchecks 11/22/18 11/21/18 11/21/18 05:37 20:29 16:00 POC Glucose 228 H 276 H 201 H 11/21/18 11/21/18 11/21/18 15:19 14:06 13:09 POC Glucose 185 H 176 H 162 H 11/21/18 11/21/18 12:01 11:09 POC Glucose 170 H 141 H Phys Exam - Physical Examination Constitutional: NAD Respiratory: no wheezing, no rales, no rhonchi Cardiovascular: RRR, no significant murmur HR 100's currently Gastrointestinal: soft, positive bowel sounds Musculoskeletal: no edema Psychiatric: normal affect Skin: no rash Dx/Plan (1) Acute respiratory failure with hypoxia Code(s): J96.01 - ACUTE RESPIRATORY FAILURE WITH HYPOXIA Status: Resolved (2) Diabetes mellitus Code(s): E11.9 - TYPE 2 DIABETES MELLITUS WITHOUT COMPLICATIONS Status: Chronic Qualifiers: Diabetes mellitus type: type 1 Diabetes mellitus complication status: without complication Qualified Code(s): E10.9 - Type 1 diabetes mellitus without complications (3) CARLEEN (acute kidney injury) Code(s): N17.9 - ACUTE KIDNEY FAILURE, UNSPECIFIED Status: Resolved (4) S/P appendectomy Code(s): Z90.49 - ACQUIRED ABSENCE OF OTHER SPECIFIED PARTS OF DIGESTIVE TRACT Status: Acute (5) Anemia Code(s): D64.9 - ANEMIA, UNSPECIFIED Status: Acute (6) Hypokalemia Code(s): E87.6 - HYPOKALEMIA Status: Resolved - Plan * ARF with hypoxia - resolved * check CXR repeated this morning due to volume overload - it persists. Will tx with another dose of lasix today, pt is sx improved. * Echo normal * volume overload secondary to fluids/hospitalization * Symptomatic anemia - s/p 1 unit PRBC with improvement in sx and hemoglobin. No further indication for transfusion * CARLEEN on admission resolved * Hypokalemia resolved * DM * Increase NPH to 30 units AM and 20 units PM * Change to regular insulin sliding scale moderate level with meals - to continue this as an outpatient * Recommend f/u with [facility] for care * Gen Surgery to evaluate today * dvt prophy - ambulatory * gi prophy - not indicated -d/c * code status full * * Pt cleared for discharge from hospitalist perspective, will follow him daily while an inpatient. Needs f/u as noted above for diabetes mellitus, reassess blood pressure, and overall care
[2018-11-22 12:14] VITALS: TEMP 98.5
[2018-11-22 13:44] VITALS: BP 154/95
--- NOTE | 2018-11-22 17:04 | DIS ---
DATE OF ADMISSION: 11/19/2018 DATE OF DISCHARGE: 11/22/2018 DISCHARGE DIAGNOSES: 1. Type 1 diabetes, glucoses in the 400s. 2. Anemia due to blood loss, postoperative bleeding. LABORATORY DATA: Discharge hemoglobin 10.3. Admission hemoglobin prior to appendectomy on 11/18/2018, 15.7. Admission hemoglobin 10.5, fell to 7.3. The patient was orthostatic and symptomatic, thus received 1 unit of blood. Hemoglobin remained stable, hemoglobin at discharge at 9.1. HISTORY: A 37-year-old male with acute onset of abdominal pain. CAT scan confirmed appendicitis. Waited in the hospital for 10 hours. Awaiting OR availability, underwent laparoscopic video appendectomy. Postoperatively, discharged to home. He developed orthostatics symptoms. Call my office or report to the emergency room with the above findings. Accu-Cheks in the 400s, hemoglobin 10. He was seen by Medical. Insulin adjusted, and his glucoses became under control. He was transfused 1 unit of blood due to orthostatic symptoms and resolving these. He on admission this hospitalization had a CAT scan that revealed post appendectomy changes, no complications. The patient was given Augmentin in the hospital and sent home without antibiotics. He is to follow up in my office in 2 to 3 weeks. The patient's diet and activity as tolerated. Resume his diabetic diet and diabetic control in routine. Job ID: [id number]
[2018-11-23] MEDS ORDERED: NPH, Human Insulin Isophane 300 UNIT/3 ML VIAL SC SCH (08:00)
--- NOTE | 2018-11-23 08:07 | DIS ---
DATE OF ADMISSION: 11/19/2018 DATE OF DISCHARGE: 11/22/2018 REQUESTING PHYSICIAN: Emerson Parks MD HISTORY OF PRESENT ILLNESS: Mr. Odell is a 37-year-old male with type 1 diabetes, who is status post appendectomy, return to the emergency room due to presyncopal symptoms described as a curtain going over his eyes, lightheaded, dizzy, and nausea. At home postoperatively, his blood sugars were increasing despite the use of his usual and extra insulin. For these symptoms, he re-presented to the emergency room for care. He was admitted by the General Surgery Service. HOSPITAL COURSE: Medical conditions that were addressed here are; 1. Type 1 diabetes. The patient was initially kept on NPH with sliding scale coverage as he was on a clear liquid diet. His blood sugars had improved overnight into the next day. However, the following day, his blood sugars were increasing. In addition, his hemoglobin was decreasing and he was ultimately transferred to the ICU due to no available beds in the [facility]. We started him on an insulin drip to ensure that he did not progress into DKA, to manage his blood sugars and had an n.p.o. The following day, he was overall improved, transitioned back to NPH as well as sliding-scale insulin and he will continue this at home. Of note, the patient does not have any primary care provider. I recommend that he follows up with the [place] [facility] for care, and to have a physician working with him to optimally improve his blood sugars. He normally takes NPH and regular insulin twice a day for each. I recommend especially while he is off from work that he uses the regular insulin with each meal as well as at bedtime to help better control his blood sugars at home. His blood sugars here over the prior 24 hours before discharge ranged from 201 in the morning to 365 before at lunch. He was given a scale to use for better blood sugar control. 2. Anemia. The patient's initial presentation preoperatively is his hemoglobin was 15.7. When he returned to the emergency room, it was 10.5 and the following day, down to 7.9. It was checked a few times during the day with the lowest of 7.3. Because the patient was becoming increasingly tachycardic as well as lightheaded and dizzy with ambulation, he was transfused 1 unit of packed red blood cells. He tolerated this well, and his hemoglobin had increased to 9.1. General Surgery evaluated the patient and did not feel that the return trip to the OR was indicated. 3. Acute kidney injury. The patient had a creatinine of 1.6 on admission here, and he was treated with IV fluids and this resolved the following day. His renal function had remained stable and normal since then. 4. Volume overload. The patient did receive IV fluids to address the acute kidney injury as well as on a clear liquid diet. While he was in the ICU overnight, he noticed increasing shortness of breath, and requiring oxygen. His lung exam was clear. However, I ordered a chest x-ray, which demonstrated volume overload. The IV fluids were stopped, he received a dose of IV Lasix and responded well. The oxygen was removed and the patient was symptomatically resolved. I repeated the chest x-ray as his lung exam remained clear, which continued to show volume overload. In the absence of symptoms, and with a normal echocardiogram that was performed the prior day, I ordered one dose of oral Lasix. Given that the patient does not have an established primary care, as well as the acute kidney injury on admission, I did not continue Lasix after discharge. I anticipate any further volume overload, to resolve as the patient continues to heal from the surgery. The patient does have to seek care and return for care precautions. 5. Elevated blood pressures. The patient with intermittently elevated blood pressures here, with the one prior to discharge of 154/95. He also had blood pressures that were in the 140s up to the 170s. He was not initiated on medications here, as he will require monitoring for anything that is introduced, including JARROD inhibitors. Again, I recommend that he follow up with the [facility] to establish care, improve management of diabetes in the outpatient setting, address any blood pressure needs, monitoring of his renal function. The patient on day of discharge, overall improved, symptomatically improved, up and ambulating. I support discharge to home with the above with the recommendations on establishing a primary care, more frequent blood sugar checks and dosing of regular insulin for better control, as well as seek care precautions. DIET: Carbohydrate consistent. ACTIVITY: As tolerated and instructed by General Surgery. Thank you for including us to be part of the patient's care. Job ID: [id number]
--- NOTE | 2018-11-23 18:28 | PDOC.EVN ---
Event Note - Event Note Event Note: Called to check on patient this evening - he reports a little better today in terms of breathing and overall energy. Is having diarrhea. He reports some similar sx with his eyes that occurred the morning after his surgery. reports seeing floaters or black spots. Encouraged pt to have this checked out - starting with an Associate Engineer and recommend [facility]/Dr. Sanchez. Discussed that if any concerns or abnormalities, a referral to Ophthalmology may be needed. Pt reports back to his usual routine with insulin and blood sugars are back to 150-200. Encouraged them to find a PCP - either the [facility] residency program or [facility]. His asked about having his blood count checked prior to leaving town - recommend they establish care with a PCP for this to occur as well as to partner on other health issues - blood pressure, blood sugars and the volume overload in the hospital. Discussed return to ER precautions - threat to vision, any health concerns at any time - such as high blood sugars, high heart rate, difficulty breathing, abdominal pain. No questions or further needs at end of call.
== END 2018-11-22 14:12 | disposition home or self-care (01) | DRG 919 ==
LOC: ERS 14:19 → OBSVTOIN 16:15 → SJJU 16:15 → CCU 11-20 20:48 → SURG A 11-21 15:44
PROVIDERS: ADMIT Surgery; ATTEND Surgery
PROC: 30233N1 Transfusion of Nonautologous Red Blood Cells into Peripheral Vein, Percutaneous Approach (ICD-10-PCS; principal; 2018-11-21)
DX: K91.840 Postprocedural hemorrhage of a digestive system organ or structure following a digestive system procedure (principal); J96.01 Acute respiratory failure with hypoxia; D62 Acute posthemorrhagic anemia; N17.9 Acute kidney failure, unspecified; Y83.9 Surgical procedure, unspecified as the cause of abnormal reaction of the patient, or of later complication, without mention of misadventure at the time of the procedure; E10.65 Type 1 diabetes mellitus with hyperglycemia; E86.0 Dehydration; D72.829 Elevated white blood cell count, unspecified; G89.18 Other acute postprocedural pain; E87.6 Hypokalemia
CPT/HCPCS: 36415; 36416; 36430; 71045; 71275; 74018; 74177; 80048; 80053; 82550; 83735; 84484; 85014; 85018; 85025; 86850; 86900; 86901; 93306; J1815; J1940; J2270; J2543; J3480; J3490; P9016; Q9966; S0028

== ENCOUNTER 2020-11-24 18:13 | Emergency (ER) | payer OTHER, SELFPAY ==
[2020-11-24 19:48] LABS: Anion Gap 15 mmol/L (10-20); BUN (Urea Nitrogen) 20 mg/dL (8.9-20.6); Calc. Creatinine Clearance 0 mL/min (70-130); Calcium 9.3 mg/dL (7.8-10.44); Carbon Dioxide 25 mmol/L (22-29); Chloride 98 mmol/L (98-107); Glucose 263 mg/dL (70-105); Potassium 4.2 mmol/L (3.5-5.1); Sodium 134 mmol/L (136-145)
== END 2020-11-24 20:11 | disposition home or self-care (01) ==
LOC: ERS 18:13
DX: M79.89 Other specified soft tissue disorders (principal); I10 Essential (primary) hypertension; E11.9 Type 2 diabetes mellitus without complications; Z79.4 Long term (current) use of insulin
CPT/HCPCS: 36415; 80048; 93970

== ENCOUNTER 2021-12-25 11:24 | Inpatient (IN) | payer SELFPAY ==
[2021-12-25] MEDS ORDERED: Iopamidol-370 76% 500 ML 1 ML ONE (14:17)
[2021-12-25 15:23] LABS: #Eosinphils 0.7 thou/uL (0.0-0.7); #Lymphocytes 1.7 thou/uL (1.20-3.40); #Monocytes 0.8 thou/uL (0.11-0.59); #Neutrophils 5.4 thou/uL (1.40-6.50); %Basophils 0.5 % (0.0-1.0); %Eosinophils 7.8 % (0.0-10.0); %Lymphocytes 19.3 % (21.0-51.0); %Monocytes 9.8 % (0.0-10.0); %Neutrophils 62.7 % (42.0-75.0); Hemoglobin 15.2 g/dL (14.0-18.0); Mean Corpuscular HGB CONC 33.7 g/dL (32.0-36.0); Mean Corpuscular Hemoglobin 29.8 pg (27.0-31.0); Mean Corpuscular Volume 88.5 fL (78.0-98.0); Mean Platelet Volume 7.7 fL (7.4-10.4); Platelet Count 284 thou/uL (130-400); RBC Distribution Width 12.3 % (11.5-14.5); Red Blood Cell (RBC) Count 5.08 mill/uL (4.70-6.10); White Blood Cell (WBC) Count 8.5 thou/uL (4.8-10.8)
[2021-12-25 15:37] LABS: Bilirubin Negative (Negative); Blood, Urine Negative (Negative); Clarity Clear (Clear); Glucose, Urine (Dipstick) Greater than 1000 mg/dL (Negative); Ketone, Urine Negative (Negative); Leukocyte Negative Leu/uL (Negative); Nitrite Negative (Negative); Protein, Urine (Dipstick) Negative (Neg-Trace); Specific Gravity, Urine 1.025 (1.002-1.036); Urobilinogen Normal mg/dL (Less than 2); pH, Urine 6.5 (5.0-9.0)
[2021-12-25 15:40] LABS: Lactic Acid 1.4 mmol/L (0.5-2.2)
[2021-12-25 15:46] LABS: ALT (SGPT) 28 U/L (8-55); AST (SGOT) 21 U/L (5-34); Albumin 4.1 g/dL (3.5-5.0); Alkaline Phosphatase 88 U/L (40-110); Anion Gap 13 mmol/L (10-20); BUN (Urea Nitrogen) 19 mg/dL (8.9-20.6); Bilirubin, Total 0.4 mg/dL (0.2-1.2); Calc. Creatinine Clearance 0 mL/min (70-130); Calcium 9.5 mg/dL (7.8-10.44); Carbon Dioxide 27 mmol/L (22-29); Chloride 101 mmol/L (98-107); Estimated GFR 102; Glucose 229 mg/dL (70-105); Lipase 15 U/L (8-78); Potassium 4.4 mmol/L (3.5-5.1); Protein, Total 7.1 g/dL (6.0-8.3); Sodium 137 mmol/L (136-145)
[2021-12-25 15:47] LABS: PTT 29.8 sec (22.9-36.1)
[2021-12-25 15:48] LABS: Prothrombin Time 13.1 sec (12.0-14.7)
[2021-12-25 15:50] LABS: Troponin I Less than 0.010 ng/mL (< 0.028)
[2021-12-25 16:01] LABS: D-Dimer Test 0.3 *mcg/mL (0.27-0.43)
[2021-12-25] MEDS ORDERED: Acetaminophen 325 MG TAB PO PRN (18:16)
[2021-12-25] MEDS ORDERED: Dextrose 50% Abboject 50 ML SYRINGE SLOW IVP PRN (18:39)
[2021-12-25] MEDS ORDERED: Dextrose 5% in Water 1,000 ML IV PRN (18:39)
[2021-12-25] MEDS ORDERED: HumaLOG 300 UNITS/3 ML VIAL SC PRN (18:39)
[2021-12-25 18:53] LABS: SARS-CoV-2 NAA Rapid Test Not Detected (NotDetected)
[2021-12-25 18:57] VITALS: BMI 40.7
[2021-12-25] MEDS: Insulin Glargine 30 UNITS/0.3 ML VIAL SC SCH (20:16)
[2021-12-26] MEDS ORDERED: diphenhydrAMINE 25 MG CAP PO SCH (01:45)
[2021-12-26 04:27] LABS: #Eosinphils 0.8 thou/uL (0.0-0.7); #Lymphocytes 1.8 thou/uL (1.20-3.40); #Monocytes 0.8 thou/uL (0.11-0.59); %Basophils 0.5 % (0.0-1.0); %Eosinophils 9.5 % (0.0-10.0); %Lymphocytes 21.3 % (21.0-51.0); %Monocytes 9.3 % (0.0-10.0); %Neutrophils 59.4 % (42.0-75.0); Hemoglobin 14.6 g/dL (14.0-18.0); Mean Corpuscular HGB CONC 33.3 g/dL (32.0-36.0); Mean Corpuscular Hemoglobin 30.2 pg (27.0-31.0); Mean Corpuscular Volume 90.7 fL (78.0-98.0); Mean Platelet Volume 7.6 fL (7.4-10.4); Platelet Count 265 thou/uL (130-400); RBC Distribution Width 12.4 % (11.5-14.5); Red Blood Cell (RBC) Count 4.85 mill/uL (4.70-6.10); White Blood Cell (WBC) Count 8.4 thou/uL (4.8-10.8)
[2021-12-26 04:52] LABS: Anion Gap 14 mmol/L (10-20); BUN (Urea Nitrogen) 17 mg/dL (8.9-20.6); Calc. Creatinine Clearance 183 mL/min (70-130); Calcium 9.2 mg/dL (7.8-10.44); Carbon Dioxide 27 mmol/L (22-29); Chloride 101 mmol/L (98-107); Estimated GFR 101; Glucose 197 mg/dL (70-105); Potassium 4.7 mmol/L (3.5-5.1); Sodium 137 mmol/L (136-145)
[2021-12-26] MEDS: Lisinopril 20 MG TAB PO SCH (09:11)
[2021-12-26] MEDS: Insulin Glargine 30 UNITS/0.3 ML VIAL SC SCH ×2 (09:14→21:28)
[2021-12-26 12:22] LABS: ANA Symphony (Qualitative) Negative (Negative); ANA Symphony (Quantitative) 0.4 Ratio (< 0.7 Negative); dsDNA IgG Antibody 0.8 IU/mL (<10 Negative)
[2021-12-26 16:55] LABS: Troponin I Less than 0.010 ng/mL (< 0.028)
[2021-12-27] MEDS: Insulin Glargine 30 UNITS/0.3 ML VIAL SC SCH (08:47)
[2021-12-27] MEDS: Lisinopril 20 MG TAB PO SCH (11:49)
[2021-12-27 11:54] VITALS: BP 195/86; TEMP 97.4
== END 2021-12-27 16:11 | disposition home or self-care (01) | DRG 206 ==
LOC: ERS 11:24 → 2SW 17:05 → OBSVTOIN 12-26 15:52
PROVIDERS: ADMIT Family Medicine; ATTEND Family Medicine
DX: R09.02 Hypoxemia (principal); R18.8 Other ascites; Z68.41 Body mass index [BMI] 40.0-44.9, adult; R06.00 Dyspnea, unspecified; Z20.822 Contact with and (suspected) exposure to COVID-19; E10.9 Type 1 diabetes mellitus without complications; I10 Essential (primary) hypertension; E66.9 Obesity, unspecified; Z79.899 Other long term (current) drug therapy; Z79.4 Long term (current) use of insulin; Z90.49 Acquired absence of other specified parts of digestive tract; Z82.0 Family history of epilepsy and other diseases of the nervous system; Z82.49 Family history of ischemic heart disease and other diseases of the circulatory system
CPT/HCPCS: 36415; 36416; 71045; 74177; 76700; 78452; 80048; 80053; 81003; 83605; 83690; 83880; 84484; 85025; 85379; 85610; 85652; 85730; 86038; 86140; 86225; 93005; 93017; 93306; A9500; G0378; J0153; J1815; Q9967; U0002

== ENCOUNTER 2024-12-24 18:54 | Inpatient (IN) | payer SELFPAY ==
[2024-12-24 19:36] LABS: #Basophils 0.03 10x3/uL (0.0-0.2); #Eosinophils 0.13 10x3/uL (0.0-0.7); #Monocytes 1.67 10x3/uL (0.11-0.59); #Neutrophils 11.55 10x3/uL (1.40-6.50); %Basophils 0.2 % (0.0-1.0); %Eosinophils 0.9 % (0.0-10.0); %Lymphocytes 8.4 % (21.0-51.0); %Monocytes 11.4 % (0.0-10.0); %Neutrophils 78.6 % (42.0-75.0); Hematocrit 37.4 % (42.0-52.0); Hemoglobin 12.1 g/dL (14.0-18.0); Mean Corpuscular Hemoglobin 27.1 pg (27.0-31.0); Mean Corpuscular Volume 83.9 fL (78.0-98.0); Platelet Count 442 10x3/uL (130-400); Red Blood Cell (RBC) Count 4.46 mill/uL (4.70-6.10); White Blood Cell (WBC) Count 14.70 10x3/uL (4.8-10.8)
[2024-12-24 19:53] LABS: PTT 37.8 sec (22.9-36.1)
[2024-12-24 19:58] LABS: ALT (SGPT) 186 U/L (Less than 45); AST (SGOT) 119 U/L (11-34); Albumin 3.3 g/dL (3.1-4.5); Alkaline Phosphatase 750 U/L (40-110); Anion Gap 18 mmol/L (10-20); BUN (Urea Nitrogen) 10 mg/dL (8.9-20.6); Bilirubin, Total 1.4 mg/dL (0.3-1.2); Calc. Creatinine Clearance 0 mL/min (70-130); Calcium 9.3 mg/dL (7.8-10.44); Carbon Dioxide 26 mmol/L (22-29); Chloride 95 mmol/L (98-107); Globulin 4.3 g/dL (2.4-3.5); Glucose 94 mg/dL (70-105); Potassium 4.0 mmol/L (3.5-5.1); Sodium 135 mmol/L (136-145)
[2024-12-24 19:59] LABS: Troponin I Less than 0.010 ng/mL (< 0.028)
[2024-12-24 20:03] LABS: Actual Bicarbonate (HCO3v) 25.4 mEq/L (22-28); Base Excess 1.3 mEq/L (-2.0 to +3.0); Calcium, Ionized (venous) 1.03 mmol/L (1.16-1.32); Chloride (VBG) 96 mmol/L (98-106); Hematocrit-VBG 41 % (42.0-52.0); Hemoglobin (Hb) 13.8 g/dL (13.1-17.2); Potassium (VBG) 3.96 mmol/L (3.70-5.30); Sodium 133 mmol/L (133-146)
[2024-12-24 20:05] LABS: INR-International Normal Ratio 1.2; Prothrombin Time 15.2 sec (12.0-14.7)
[2024-12-24] MEDS ORDERED: Calcium Carbonate 500 MG ChewTAB PO PRN (23:27)
[2024-12-24] MEDS ORDERED: Acetaminophen 325 MG TAB PO PRN (23:27)
[2024-12-24] MEDS ORDERED: Ondansetron PF 4 MG/2 ML Vial IVP PRN (23:27)
[2024-12-24] MEDS ORDERED: Electrolyte Replacement Protocol 1 EACH FS SCH (23:30)
[2024-12-24] MEDS ORDERED: Glucagon 1 MG/ML KIT IM PRN (23:30)
[2024-12-24] MEDS ORDERED: Dextrose 50% Abboject 50 ML SYRINGE SLOW IVP PRN (23:30)
[2024-12-25 00:18] VITALS: BMI 45.3
[2024-12-25] MEDS: Vancomycin (BATCH) 2.5 GM in Premix 1 BAG IVPB SCH (01:15)
[2024-12-25 04:04] LABS: #Basophils Less than 0.03 10x3/uL (0.0-0.2); #Eosinophils 0.15 10x3/uL (0.0-0.7); #Monocytes 1.85 10x3/uL (0.11-0.59); #Neutrophils 8.92 10x3/uL (1.40-6.50); %Basophils 0.2 % (0.0-1.0); %Eosinophils 1.2 % (0.0-10.0); %Lymphocytes 11.3 % (21.0-51.0); %Monocytes 14.9 % (0.0-10.0); %Neutrophils 71.8 % (42.0-75.0); Hematocrit 36.7 % (42.0-52.0); Hemoglobin 11.5 g/dL (14.0-18.0); Mean Corpuscular Hemoglobin 27.0 pg (27.0-31.0); Mean Corpuscular Volume 86.2 fL (78.0-98.0); Platelet Count 380 10x3/uL (130-400); Red Blood Cell (RBC) Count 4.26 mill/uL (4.70-6.10); White Blood Cell (WBC) Count 12.41 10x3/uL (4.8-10.8)
[2024-12-25 04:27] LABS: ALT (SGPT) 164 U/L (Less than 45); AST (SGOT) 101 U/L (11-34); Albumin 2.9 g/dL (3.1-4.5); Alkaline Phosphatase 690 U/L (40-110); Anion Gap 14 mmol/L (10-20); BUN (Urea Nitrogen) 12 mg/dL (8.9-20.6); Bilirubin, Total 1.3 mg/dL (0.3-1.2); Calc. Creatinine Clearance 154 mL/min (70-130); Calcium 8.5 mg/dL (7.8-10.44); Carbon Dioxide 24 mmol/L (22-29); Chloride 103 mmol/L (98-107); Globulin 4.1 g/dL (2.4-3.5); Glucose 68 mg/dL (70-105); Potassium 3.8 mmol/L (3.5-5.1); Sodium 137 mmol/L (136-145)
[2024-12-25] MEDS: Lisinopril 20 MG TAB PO SCH (10:26)
[2024-12-25] MEDS: cefTRIAXone\\ROCEPHIN 1 GM in Sodium Chloride 0.9% 100 ML IVPB SCH (10:27)
[2024-12-25] MEDS: Insulin Glargine 30 UNITS/0.3 ML VIAL SC SCH (10:28)
[2024-12-25] MEDS: hydrALAZINE 20 MG/ML VIAL SLOW IVP PRN (16:51)
[2024-12-25 19:27] LABS: Glucose, Urine (Dipstick) Normal (Negative); Leukocyte Negative Leu/uL (Negative); Protein, Urine (Dipstick) 20 mg/dL (Neg-Trace); Specific Gravity, Urine 1.012 (1.002-1.036)
[2024-12-26 04:38] LABS: #Basophils 0.03 10x3/uL (0.0-0.2); #Eosinophils 0.22 10x3/uL (0.0-0.7); #Monocytes 1.30 10x3/uL (0.11-0.59); #Neutrophils 8.89 10x3/uL (1.40-6.50); %Basophils 0.3 % (0.0-1.0); %Eosinophils 1.9 % (0.0-10.0); %Lymphocytes 9.2 % (21.0-51.0); %Monocytes 11.2 % (0.0-10.0); %Neutrophils 76.8 % (42.0-75.0); Hematocrit 33.8 % (42.0-52.0); Hemoglobin 10.8 g/dL (14.0-18.0); Mean Corpuscular Hemoglobin 27.7 pg (27.0-31.0); Mean Corpuscular Volume 86.7 fL (78.0-98.0); Platelet Count 409 10x3/uL (130-400); Red Blood Cell (RBC) Count 3.90 mill/uL (4.70-6.10); White Blood Cell (WBC) Count 11.57 10x3/uL (4.8-10.8)
[2024-12-26 04:53] LABS: ALT (SGPT) 129 U/L (Less than 45); AST (SGOT) 66 U/L (11-34); Albumin 2.7 g/dL (3.1-4.5); Alkaline Phosphatase 626 U/L (40-110); Anion Gap 19 mmol/L (10-20); BUN (Urea Nitrogen) 14 mg/dL (8.9-20.6); Bilirubin, Total 1.1 mg/dL (0.3-1.2); Calc. Creatinine Clearance 138 mL/min (70-130); Calcium 8.5 mg/dL (7.8-10.44); Carbon Dioxide 22 mmol/L (22-29); Chloride 98 mmol/L (98-107); Globulin 4.0 g/dL (2.4-3.5); Glucose 129 mg/dL (70-105); Potassium 3.9 mmol/L (3.5-5.1); Sodium 135 mmol/L (136-145)
[2024-12-27 04:12] LABS: #Basophils 0.04 10x3/uL (0.0-0.2); #Eosinophils 0.33 10x3/uL (0.0-0.7); #Monocytes 1.09 10x3/uL (0.11-0.59); #Neutrophils 8.56 10x3/uL (1.40-6.50); %Basophils 0.4 % (0.0-1.0); %Eosinophils 3.0 % (0.0-10.0); %Lymphocytes 6.8 % (21.0-51.0); %Monocytes 10.1 % (0.0-10.0); %Neutrophils 79.1 % (42.0-75.0); Hematocrit 33.9 % (42.0-52.0); Hemoglobin 10.6 g/dL (14.0-18.0); Mean Corpuscular Hemoglobin 27.1 pg (27.0-31.0); Mean Corpuscular Volume 86.7 fL (78.0-98.0); Platelet Count 435 10x3/uL (130-400); Red Blood Cell (RBC) Count 3.91 mill/uL (4.70-6.10); White Blood Cell (WBC) Count 10.82 10x3/uL (4.8-10.8)
[2024-12-27 04:50] LABS: Anion Gap 16 mmol/L (10-20); BUN (Urea Nitrogen) 18 mg/dL (8.9-20.6); Calc. Creatinine Clearance 147 mL/min (70-130); Calcium 8.8 mg/dL (7.8-10.44); Carbon Dioxide 24 mmol/L (22-29); Chloride 96 mmol/L (98-107); Glucose 241 mg/dL (70-105); Potassium 3.9 mmol/L (3.5-5.1); Sodium 132 mmol/L (136-145)
[2024-12-27 16:33] LABS: Hep A IgM AB NONREACTIVE (NonReactive); Hep A IgM S/CO 0.12 S/CO (0-0.79); Hep B Core IgM Index 0.09 S/CO (0-0.79); Hep B Surf Ag NONREACTIVE S/CO (NonReactive); Hep C IgG Ab NONREACTIVE S/CO (NonReactive); Hep C Index 0.30 S/CO (0-0.79)
[2024-12-27] MEDS: Furosemide 40 MG (4 mL) VIAL SLOW IVP SCH (21:19)
[2024-12-27] MEDS: Insulin Glargine 30 UNITS/0.3 ML VIAL SC SCH (21:20)
[2024-12-29 07:37] LABS: #Basophils 0.03 10x3/uL (0.0-0.2); #Eosinophils 0.45 10x3/uL (0.0-0.7); #Monocytes 0.83 10x3/uL (0.11-0.59); #Neutrophils 4.37 10x3/uL (1.40-6.50); %Basophils 0.5 % (0.0-1.0); %Eosinophils 6.8 % (0.0-10.0); %Lymphocytes 13.7 % (21.0-51.0); %Monocytes 12.5 % (0.0-10.0); %Neutrophils 65.9 % (42.0-75.0); Hematocrit 35.3 % (42.0-52.0); Hemoglobin 10.8 g/dL (14.0-18.0); Mean Corpuscular Hemoglobin 27.2 pg (27.0-31.0); Mean Corpuscular Volume 88.9 fL (78.0-98.0); Platelet Count 501 10x3/uL (130-400); Red Blood Cell (RBC) Count 3.97 mill/uL (4.70-6.10); White Blood Cell (WBC) Count 6.63 10x3/uL (4.8-10.8)
[2024-12-29 07:53] LABS: ALT (SGPT) 121 U/L (Less than 45); AST (SGOT) 88 U/L (11-34); Albumin 2.9 g/dL (3.1-4.5); Alkaline Phosphatase 641 U/L (40-110); Anion Gap 13 mmol/L (10-20); BUN (Urea Nitrogen) 14 mg/dL (8.9-20.6); Bilirubin, Total 0.6 mg/dL (0.3-1.2); Calc. Creatinine Clearance 129 mL/min (70-130); Calcium 9.0 mg/dL (7.8-10.44); Carbon Dioxide 31 mmol/L (22-29); Chloride 94 mmol/L (98-107); Globulin 4.1 g/dL (2.4-3.5); Glucose 151 mg/dL (70-105); Potassium 3.9 mmol/L (3.5-5.1); Sodium 134 mmol/L (136-145)
[2024-12-29] MEDS: Azithromycin 500 MG in Sodium Chloride 0.9% 250 ML 250 ML IVPB SCH (20:00)
[2024-12-30 11:08] VITALS: BMI 44.9
[2024-12-30 11:52] VITALS: BP 139/66; TEMP 98.8
== END 2024-12-30 16:30 | disposition home or self-care (01) | DRG 871 ==
LOC: ERS 18:54 → PCU 22:41
PROVIDERS: ADMIT Student in an Organized Health Care Education/Training Program; ATTEND Hospitalist
PROC: 5A09357 Assistance with Respiratory Ventilation, Less than 24 Consecutive Hours, Continuous Positive Airway Pressure (ICD-10-PCS; principal; 2024-12-24)
PROC: 3E03329 Introduction of Other Anti-infective into Peripheral Vein, Percutaneous Approach (ICD-10-PCS; principal; 2024-12-24)
DX: A41.50 Gram-negative sepsis, unspecified (principal); J18.9 Pneumonia, unspecified organism; J96.00 Acute respiratory failure, unspecified whether with hypoxia or hypercapnia; E66.2 Morbid (severe) obesity with alveolar hypoventilation; A41.89 Other specified sepsis; E10.9 Type 1 diabetes mellitus without complications; I10 Essential (primary) hypertension; R74.01 Elevation of levels of liver transaminase levels; Z79.899 Other long term (current) drug therapy
CPT/HCPCS: 36415; 36416; 71045; 71260; 74177; 76700; 80048; 80053; 80074; 81003; 82805; 83036; 83605; 83880; 84484; 85025; 85610; 85730; 87040; 87077; 87149; 93005; 93306; 94640; 94660; 94760; 96365; 96367; J0360; J0456; J0696; J1815; J1940; J2543; J3373; J7050; J7620; Q0162